=== PATIENT | male | born 1985 | race African-American/Black ===

== ENCOUNTER → 2016-08-17 | Day surgery (SDC) | payer OTHER ==
[~2016-08-17] MED LIST: AMOX500T PO; BUPIVACAINE/EPINEPHRINE 0.25% 50 ML VIAL ONE; BUPIVACAINE/EPINEPHRINE 0.5% PF 30 ML VIAL ONE; HYDR-3533 PO; IBUP-238 PO; IBUP800T23 PO; KETOROLAC TROMETHAMINE 30 MG/ML (IVP) VIAL IV PUSH ONE; LACTATED RINGER'S 1000 ML INJ 1,000 ML ONE; LEVA750T9 PO; METH750T2 PO; MIDAZOLAM HCL 2 MG/2 ML VIAL ONE; MORPHINE SULFATE 4 MG/ML INJ ONE; ONDANSETRON HCL 4 MG/2 ML VIAL IV PUSH ONE; PROPOFOL 200 MG/20 ML AMP IV ONE; ceFAZolin INJ 1,000 MG VIAL ONE
--- NOTE | 2016-08-18 08:00 | MP ---
cc: BAMBI MORALES DATE OF SURGERY 08/17/2016 PREOPERATIVE DIAGNOSIS Left knee medial and lateral meniscus tear. POSTOPERATIVE DIAGNOSES Left knee medial and lateral meniscus tear. PROCEDURE Left knee arthroscopic partial medial and lateral meniscectomy. SURGEON Dr. Bambi Morales ANESTHESIA General ESTIMATED BLOOD LOSS Less than 10 cc TOURNIQUET TIME 0 minutes COMPLICATIONS None JUSTIFICATION This patient is a 31-year male who injured the left knee and has had persistence of pain in regards to his condition and failure of conservative. The patient counseled as to the risks, benefits and alternatives to the above-named proposed surgical procedure, he did wish to proceed with surgery. PROCEDURE IN DETAIL A written consent was obtained. The patient identified by name, taken to the operating room, placed supine on the operating room table. General anesthesia was administered, as well as one gram of IV Ancef. The left thigh carefully placed in the well-padded leg cardona. The left lower extremity was prepped and draped using Isopropyl alcohol, Hibiclens solution and DuraPrep solution. A standard medial and lateral parapatellar arthroscopic portal was established. The patellofemoral joint revealed no significant chondromalacia. The medial compartment revealed a tear of the posterior horn of the medial meniscus. An arthroscopic shaver was introduced into the medial compartment to perform a partial meniscectomy. The meniscal rim was probed and noted to be stable. No significant chondromalacia of the medial compartment was noted. The intercondylar notch revealed synovitis and a slight partial disruption of the anterior cruciate ligament. A shaver was used to perform a debridement. The majority of the ligament was intact and an intraoperative Vanda exam was performed which was negative. The lateral compartment did reveal an unstable tear of the posterior horn of the lateral meniscus. 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 An arthroscopic biter, followed by an arthroscopic shaver was introduced into the lateral compartment to perform a partial lateral meniscectomy. Again the meniscal rim was probed and noted to be stable after meniscectomy. At the conclusion of the surgical procedure, 30 cc of 0.5% Marcaine with epinephrine was injected into the knee joint. The arthroscopic portals were closed with 3-0 Prolene sutures. Sterile dressings applied. The patient tolerated the procedure well with no intraoperative complications noted. MD ENOC Scott/HECTOR /3:50 PM /7:53 AM
== END | disposition home or self-care (01) ==
LOC: ESDC 14:23
PROVIDERS: ATTEND Orthopaedic Surgery Sports Medicine
DX: S83.242A Other tear of medial meniscus, current injury, left knee, initial encounter (principal); S83.282A Other tear of lateral meniscus, current injury, left knee, initial encounter
CPT/HCPCS: 01400; 29880; J0690; J1885; J2250; J2270; J2405; J3010; J7120

== ENCOUNTER 2016-08-21 21:48 | Emergency (ER) | payer SELFPAY ==
[~2016-08-21] VITALS: Ht 177.8 cm; Wt 101.7 kg
[~2016-08-21 21:48] MED LIST changes: -BUPIVACAINE/EPINEPHRINE 0.25% 50 ML VIAL ONE; -BUPIVACAINE/EPINEPHRINE 0.5% PF 30 ML VIAL ONE; -IBUP800T23 PO; -KETOROLAC TROMETHAMINE 30 MG/ML (IVP) VIAL IV PUSH ONE; -LACTATED RINGER'S 1000 ML INJ 1,000 ML ONE; -MIDAZOLAM HCL 2 MG/2 ML VIAL ONE; -MORPHINE SULFATE 4 MG/ML INJ ONE; -ONDANSETRON HCL 4 MG/2 ML VIAL IV PUSH ONE; -PROPOFOL 200 MG/20 ML AMP IV ONE; -ceFAZolin INJ 1,000 MG VIAL ONE
[2016-08-21 22:00] VITALS: BP 139/95; PULSE 82; RESP 18; TEMP 98.4; O2SAT 97
--- NOTE | 2016-08-21 22:15 | PD ---
HPI . tooth pain Chief Complaint: lower jaw: wisdom tooth pain Time Seen by Provider: 22:11 Travel History International Travel<30 days: No Contact w/Intl Traveler<30days: No Traveled to known affect area: No History of Present Illness HPI 31 yr old male with no PMH here with c/o right sided lower jaw pain. Apparently patient has some dental issues and call the 24-hour dentist in [place] and was told that he needs to be on antibiotics 24 hours before they could do any type of tooth extraction. Apparently he has had tooth issues for over 6 months with increased pain over the past 4 days. He is here today in hopes of getting started on antibiotics to go forward with a tooth extraction. He has not actually seen the provider in [place]. He denies any fever or chills. He has no other issues. PFSH Past Medical History Diminished Hearing: No Immunizations Current: Yes Social History Alcohol Use: Yes (OCC) Tobacco Use: Yes (06/21 PPD) Substance Use: Yes (MARIJUANA) Allergies-Medications (Allergen,Severity, Reaction): Coded Allergies: No Known Allergies (Unverified , 08/21/16) Reported Meds & Prescriptions Reported Meds & Active Scripts Active Ibuprofen 800 Mg Tab 800 Mg PO TID Review of Systems General / Constitutional: No: Fever Eyes: No: Visual changes HENT: Positive: Dental Difficulties, No: Headaches Cardiovascular: No: Chest Pain or Discomfort Respiratory: No: Shortness of Breath Gastrointestinal: No: Abdominal Pain Genitourinary: No: Dysuria Musculoskeletal: No: Pain Skin: No Rash Neurologic: No: Weakness Psychiatric: No: Depression Endocrine: No: Polydipsia Hematologic/Lymphatic: No: Easy Bruising Physical Exam Narrative GENERAL: AAO x 3, no acute distress, Well-nourished, well-developed patient. SKIN: Warm and dry. No visible rashes or bruising. HEAD: Normocephalic and atraumatic. EYES: No scleral icterus. No injection or drainage. ENT: No nasal drainage noted. Mucous membranes pink. Airway patent. Right lower jaw with impacted wisdom tooth without any evidence of abscess formation or infection. there is some tooth decay present NECK: Supple, trachea midline. No JVD. CARDIOVASCULAR: Regular rate and rhythm without murmurs, gallops, or rubs. RESPIRATORY: Breath sounds equal bilaterally. No accessory muscle use. No rhonchi or rales. GASTROINTESTINAL: Abdomen soft, non-tender, nondistended. EXTREMITIES: No cyanosis or edema. BACK: Nontender without obvious deformity. No CVA tenderness. PSYCH: AAO x 3, normal affect. Data Data Last Documented VS Vital Signs Date Time Temp Pulse Resp B/P Pulse Ox O2 Delivery O2 Flow Rate FiO2 08/21/16 22:00 98.4 82 18 139/95 97 MDM Medical Decision Making Medical Screen Exam Complete: Yes Emergency Medical Condition: Yes Differential Diagnosis impacted wisdom tooth, dental caries, oral abscess Narrative Course 31 yr old male with no PMH here with c/o right sided lower jaw pain. Apparently patient has some dental issues and call the 24-hour dentist in [place] and was told that he needs to be on antibiotics 24 hours before they could do any type of tooth extraction. Apparently he has had tooth issues for over 6 months with increased pain over the past 4 days. He is here today in hopes of getting started on antibiotics to go forward with a tooth extraction. He has not actually seen the provider in [place]. He denies any fever or chills. He has no other issues. Patient seen and examined. He does not have an active infection and does not require antibiotics. I explained to him that he will need to see a dentist for extraction. He may possibly need to see oral/max facial surgeons for this issue. Advised to continue using ibuprofen for inflammation and pain. Patient verbalized understanding of instructions, questions were answered, and thanked me for their care. I advised them if their condition worsens, please return to the nearest emergency room for further care. Diagnosis Primary Impression: Dental caries Patient Instructions: General Instructions Additional Instructions: Please return to emergency department if your symptoms return or worsen. Follow up with your primary care provider. Take medications as prescribed. Please see a dentist in the area. We have provided you with information on a local dentist who may be able to help you. Med/Other Pt SpecificInfo: Prescription(s) given Scripts Ibuprofen 800 Mg [id number] Mg PO TID #30 TAB Prov:Aldair Haji MD 08/21/16 Disposition: 01 DISCHARGE HOME Condition: Stable Rosita Martin Aug 21, 2016 22:15 Rosita Martin Aug 21, 2016 22:15
[2016-08-21] MEDS ORDERED: IBUP800T23 PO (22:16)
== END 2016-08-21 22:20 | disposition home or self-care (01) ==
LOC: PHEFT 21:48
DX: K02.9 Dental caries, unspecified (principal); F17.210 Nicotine dependence, cigarettes, uncomplicated; F12.90 Cannabis use, unspecified, uncomplicated
CPT/HCPCS: 99282

== ENCOUNTER 2017-06-05 20:06 | Emergency (ER) | payer SELFPAY ==
[~2017-06-05] VITALS: Ht 180.3 cm; Wt 96.3 kg
[~2017-06-05 20:06] MED LIST changes: -AMOX500T PO; -HYDR-3533 PO; -IBUP-238 PO; +IBUP1TAB7 PO; -LEVA750T9 PO; -METH750T2 PO
[2017-06-05 20:16] VITALS: BP 165/97; PULSE 92; RESP 20; TEMP 98.9; O2SAT 98
[2017-06-05 21:33] VITALS: BP 141/92; PULSE 89; RESP 16; O2SAT 99
[2017-06-05] MEDS ORDERED: ONDANSETRON ODT 4 MG TAB PO ONE (22:45)
[2017-06-05] MEDS ORDERED: oxyCODONE/ACETAMINOPHEN 5 MG/325 MG TAB PO ONE (22:45)
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
[2017-06-06] MEDS ORDERED: HYDR-3580 PO (00:41)
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
[2017-06-06] MEDS ORDERED: KETOROLAC TROMETHAMINE 60 MG/2 ML (IM) VIAL IM ONE (00:45)
[2017-06-06 01:15] VITALS: BP 140/90
== END 2017-06-06 01:15 | disposition home or self-care (01) ==
LOC: PHED 20:06
DX: H11.33 Conjunctival hemorrhage, bilateral (principal); S19.9XXA Unspecified injury of neck, initial encounter; S69.91XA Unspecified injury of right wrist, hand and finger(s), initial encounter; Y33.XXXA Other specified events, undetermined intent, initial encounter; Y35.93XA Legal intervention, means unspecified, suspect injured, initial encounter; Y93.9 Activity, unspecified; Y92.9 Unspecified place or not applicable; Z72.0 Tobacco use
CPT/HCPCS: 70450; 80307; 96372; 99285; J1885